=== PATIENT | female | born 1945 | race Caucasian/White ===

== ENCOUNTER 2016-07-25 14:15 | Emergency (ER) | payer MEDICARE ==
[~2016-07-25] VITALS: Wt 70.3 kg
[~2016-07-25 14:15] MED LIST: ADVAIR DISKUS 21 DSK IH; CIPRO750 MG; DETROL LA2 MG PO; EVISTA60 MG PO; FLONASE0.05 MG/AC NS; LASIX20 MG PO; POTASSIUM20 MEQ PO; PREDNISONE20 MG PO; PRILOSEC20 M1 PO; PROTONIX40 MG PO; SINGULAIR10 MG PO; ZOLOFT25 MG PO
[2016-07-25] MEDS ORDERED: ARICEPT5 M1 PO (14:25)
[2016-07-25] MEDS ORDERED: TESSALON PERLE100 M1 PO (14:25)
== END 2016-07-25 15:33 | disposition home or self-care (01) ==
LOC: ED 14:15
DX: S50.11XA Contusion of right forearm, initial encounter (principal); Z79.899 Other long term (current) drug therapy; W55.12XA Struck by horse, initial encounter; Y93.9 Activity, unspecified; Y92.9 Unspecified place or not applicable; Y99.9 Unspecified external cause status

== ENCOUNTER 2017-05-28 22:44 | Inpatient (IN) | payer MEDICARE ==
[~2017-05-28] VITALS: Ht 160.9 cm; Wt 74.5 kg
--- NOTE | ~2017-05-28 | CON ---
[place], [place] REPORT OF CONSULTATION NAME: SALVATORE HINSON UNIT #: [id number] ROOM: 409 DOCTOR: TRISHA GUERRERO MD BIRTHDATE: [birth year] DOS: 05/29/2017 PSYCHIATRIC CONSULTATION CHIEF COMPLAINT: "I don't feel right, I feel kind of spacey." HISTORY OF PRESENT ILLNESS: This is a 72-year-old woman who presented with increased depression, anxiety and just not feeling herself. The patient reports that she was at [facility] and was worked up for both Alzheimer's dementia and for major depression and sent home to have counseling and psychiatric intervention. She is a rather poor historian because she states that since she has been here she was recently placed on Remeron and Seroquel; however, the notes seem to indicate that these have been stopped and this was what was started at [facility]. She reports that what she has noted in the morning is a hangover effect and she is very somnolent for most of the day until somewhere past lunch. She does not like the feeling. She reports that she has some residual depression and anxiety, but not as bad as it had been previously. She denies a previous history of depression. PAST MEDICAL HISTORY: Remarkable for the depression and anxiety, hypertension, GERD, overactive bladder. MENTAL STATUS: The patient is alert and oriented with some time gaps. Mood does seem to be depressed with anxious overtones. There is no hypomania or marcello. There are no overt auditory or visual hallucinations. No delusions, no paranoia. Short term memory has mild gaps. DIAGNOSIS: Major depression, recurrent. PLAN: I will go ahead and order her Trintellix 10 mg a day. Trintellix is a unique SSRI that not only combats depression, but it improves anxiety. It also has been known to improve concentration and memory factors. It should not cause her to be sedate in anyway. I have discontinued her Restoril, so this is not given to her and does not cause her to be overly somnolent. Should you require further intervention, please feel free to contact me at any time. TRISHA GUERRERO MD CM:CONSTR:REPORT OF CONSULTATION 1115 05/29/17 1128 interface
[~2017-05-28 22:44] MED LIST changes: +ARICEPT5 M1 PO; +FLONASE ALLERG9.9 ML NAS; -FLONASE0.05 MG/AC NS; +TESSALON PERLE100 M1 PO
[2017-05-28 22:48] VITALS: BP 133/65
[2017-05-28] MEDS ORDERED: QUETIAPINE FUMA25 MG PO (23:00)
[2017-05-28] MEDS ORDERED: PRAZOSIN HCL1 MG PO (23:00)
[2017-05-28] MEDS ORDERED: MIRTAZAPINE7.5 MG PO (23:00)
[2017-05-28] MEDS ORDERED: PRAVASTATIN SOD10 MG PO (23:00)
[2017-05-28 23:32] LABS: HEMATOCRIT 36.9 % (37.0-47.0); HEMOGLOBIN 12.8 g/dl (12.0-16.0); MEAN CELL VOLUME 87.6 fl (81.0-99.0); MEAN CORPUSCULAR HGB 30.4 pg (27.0-31.0); MEAN CORPUSCULAR HGB CONC 34.7 g/dl (33.0-37.0); MEAN PLATELET VOLUME 9.2 fl (9.6-12.3); PLATELET COUNT AUTOMATED 362 10*3/uL (130-400); RED BLOOD COUNT 4.21 10*6/uL (4.10-5.10); RED CELL DISTRI WIDTH 12.2 % (0-14.5); WHITE BLOOD COUNT 9.8 10*3/uL (4.8-10.8)
[2017-05-28 23:42] LABS: ACT PARTIAL THROMBO TIME 26.6 SECONDS (20.8-31.5)
[2017-05-28 23:48] LABS: ALKALINE PHOSPHATASE 116 U/L (45-117); BUN 26 mg/dl (7-24); CHLORIDE 94 mmol/L (98-107); CREATININE 1.18 mg/dL (0.55-1.02); LIPASE 130 U/L (73-393); POTASSIUM 3.2 mmol/L (3.5-5.1); SGOT/AST 22 IU/L (3-35); SGPT/ALT 30 U/L (12-78); SODIUM 132 mmol/L (136-145); TOTAL PROTEIN 7.5 gm/dL (6.4-8.2); TROPONIN I < 0.015 ng/ml (<0.045)
[2017-05-29] VITALS (8 sets, daily range): BP systolic 103–126; BP diastolic 46–61
[2017-05-29 00:01] LABS: ATYPICAL LYMPHS 3 % (0-0); BASOPHILS 1 % (0-1); PLATELET SUFFICIENCY NORMAL (NORMAL); TOTAL CELLS COUNTED 100 #CELLS
[2017-05-29 01:23] LABS: ABG BASE EXCESS 1.5 mmol/L (-2.0-2.0); ABG O2 SATURATION 93.3 % (95-97); ARTERIAL BLOOD GAS PH 7.552 (7.35-7.45); ARTERIAL BLOOD GAS PO2 61.4 mmHg (80-90)
[2017-05-29] MEDS ORDERED: TESSALON PERLE100 MG PO (02:45)
[2017-05-29] MEDS ORDERED: TRIAMTERENE & H1 CAP PO (02:46)
[2017-05-29] MEDS ORDERED: DULERA 200 MCG8.8 GM INH (02:47)
[2017-05-29] MEDS ORDERED: PROAIR HFA8.5 GM INH (02:47)
[2017-05-30] VITALS: BP 134/54
[2017-05-30 04:10] LABS: BILIRUBIN NEGATIVE (NEGATIVE); BLOOD NEGATIVE (NEGATIVE); CLARITY CLEAR (CLEAR); COLOR YELLOW (YELLOW); GLUCOSE TRACE (NEGATIVE); KETONE NEGATIVE (NEGATIVE); LEUKO ESTERASE TRACE (NEGATIVE); NITRITE NEGATIVE (NEGATIVE); UROBILINOGEN 0.2 E.U./dl (0.2-1.0)
[2017-05-30 04:19] LABS: BACTERIA TRACE
[2017-05-30 06:31] LABS: BASO % 0.1 % (0.0-1.0); HEMOGLOBIN 11.7 g/dl (12.0-16.0); LYMPH # 0.7 10*3/uL (1.3-4.4); LYMPH % 9.5 % (27.0-41.0); MEAN CELL VOLUME 91.9 fl (81.0-99.0); MEAN CORPUSCULAR HGB 30.7 pg (27.0-31.0); MEAN CORPUSCULAR HGB CONC 33.4 g/dl (33.0-37.0); MEAN PLATELET VOLUME 9.5 fl (9.6-12.3); MONO # 0.3 10*3/uL (0.1-1.0); MONO % 4.6 % (3.0-9.0); NEUT # 6.2 10*3/uL (2.3-7.9); PLATELET COUNT AUTOMATED 349 10*3/uL (130-400); RED BLOOD COUNT 3.81 10*6/uL (4.10-5.10); RED CELL DISTRI WIDTH 12.5 % (0-14.5); WHITE BLOOD COUNT 7.3 10*3/uL (4.8-10.8)
[2017-05-30 07:02] LABS: ALBUMIN 2.4 gm/dl (3.1-4.5); CHLORIDE 104 mmol/L (98-107); CHOLESTEROL 82 mg/dL (<200); CREATININE 0.84 mg/dL (0.55-1.02); PHOSPHOROUS 2.9 mg/dL (2.5-4.9); POTASSIUM 3.8 mmol/L (3.5-5.1); SGOT/AST 15 IU/L (3-35); SGPT/ALT 26 U/L (12-78); SODIUM 139 mmol/L (136-145); TOTAL PROTEIN 6.7 gm/dL (6.4-8.2); TRIGLYCERIDES 64 mg/dl (<150); VLDL CHOLESTEROL 13 mg/dL (6-40)
[2017-05-30 07:08] LABS: ALKALINE PHOSPHATASE 108 U/L (45-117); HDL CHOLESTEROL 39 mg/dl (40-60); LDL CHOLESTEROL 30 mg/dL (9-159)
[2017-05-30 07:09] LABS: BUN 12 mg/dl (7-24); THYROID STIM HORMONE (HS) 0.596 uIU/ml (0.358-4.75)
[2017-05-30 08:00] VITALS: BP 139/57
[2017-05-30 09:21] LABS: VITAMIN D, 25-HYDROXY 53.1 ng/mL (30-100)
[2017-05-30 12:00] VITALS: BP 111/58
[2017-05-30 16:00] VITALS: BP 117/54; BP 143/83
[2017-05-30 20:00] VITALS: BP 120/56
[2017-05-31 00:27] VITALS: BP 126/58
[2017-05-31 06:58] LABS: BASO % 0.1 % (0.0-1.0); HEMATOCRIT 34.2 % (37.0-47.0); HEMOGLOBIN 11.3 g/dl (12.0-16.0); LYMPH # 1.3 10*3/uL (1.3-4.4); LYMPH % 10.1 % (27.0-41.0); MEAN CELL VOLUME 93.2 fl (81.0-99.0); MEAN CORPUSCULAR HGB 30.8 pg (27.0-31.0); MEAN PLATELET VOLUME 9.5 fl (9.6-12.3); MONO # 0.8 10*3/uL (0.1-1.0); MONO % 6.6 % (3.0-9.0); NEUT # 10.2 10*3/uL (2.3-7.9); NEUT % 82.2 % (47.0-73.0); PLATELET COUNT AUTOMATED 383 10*3/uL (130-400); RED BLOOD COUNT 3.67 10*6/uL (4.10-5.10); RED CELL DISTRI WIDTH 12.6 % (0-14.5); WHITE BLOOD COUNT 12.4 10*3/uL (4.8-10.8)
[2017-05-31 07:23] LABS: BUN 21 mg/dl (7-24); CHLORIDE 106 mmol/L (98-107); CREATININE 0.97 mg/dL (0.55-1.02); POTASSIUM 4.1 mmol/L (3.5-5.1); SODIUM 141 mmol/L (136-145)
[2017-05-31 08:00] VITALS: BP 144/64
[2017-05-31 12:00] VITALS: BP 116/55
[2017-05-31 16:00] VITALS: BP 130/57
[2017-05-31 20:00] VITALS: BP 117/47
[2017-06-01 00:22] VITALS: BP 135/68
[2017-06-01 07:36] LABS: BASO % 0.1 % (0.0-1.0); EOS % 0.3 % (1.0-4.0); HEMATOCRIT 35.7 % (37.0-47.0); HEMOGLOBIN 11.8 g/dl (12.0-16.0); LYMPH # 1.3 10*3/uL (1.3-4.4); LYMPH % 12.9 % (27.0-41.0); MEAN CORPUSCULAR HGB 30.7 pg (27.0-31.0); MEAN CORPUSCULAR HGB CONC 33.1 g/dl (33.0-37.0); MEAN PLATELET VOLUME 9.3 fl (9.6-12.3); MONO # 0.8 10*3/uL (0.1-1.0); MONO % 7.6 % (3.0-9.0); NEUT # 8.1 10*3/uL (2.3-7.9); NEUT % 77.8 % (47.0-73.0); PLATELET COUNT AUTOMATED 366 10*3/uL (130-400); RED BLOOD COUNT 3.84 10*6/uL (4.10-5.10); RED CELL DISTRI WIDTH 12.9 % (0-14.5); WHITE BLOOD COUNT 10.4 10*3/uL (4.8-10.8)
[2017-06-01 08:00] VITALS: BP 129/56
[2017-06-01 12:00] VITALS: BP 102/53
[2017-06-01] MEDS ORDERED: PREDNISONE10 MG PO (13:08)
[2017-06-01] MEDS ORDERED: LEVAQUIN750 M1 PO (13:08)
[2017-06-01] MEDS ORDERED: BRIN10TA PO (13:08)
[2017-06-01 16:00] VITALS: BP 130/66
== END 2017-06-01 18:00 | disposition home or self-care (01) | DRG 682 ==
LOC: ED 22:44 → EDHOLD 05-29 01:12 → 4E 05-29 01:12
PROVIDERS: Emergency Medicine; Emergency Medicine Emergency Medical Services; Internal Medicine; Student in an Organized Health Care Education/Training Program
DX: N17.0 Acute kidney failure with tubular necrosis (principal); J18.9 Pneumonia, unspecified organism; J96.01 Acute respiratory failure with hypoxia; G93.41 Metabolic encephalopathy; E44.0 Moderate protein-calorie malnutrition; E87.8 Other disorders of electrolyte and fluid balance, not elsewhere classified; D64.9 Anemia, unspecified; J45.901 Unspecified asthma with (acute) exacerbation; E87.1 Hypo-osmolality and hyponatremia; F33.9 Major depressive disorder, recurrent, unspecified; K21.9 Gastro-esophageal reflux disease without esophagitis; I10 Essential (primary) hypertension; N32.81 Overactive bladder; R73.9 Hyperglycemia, unspecified; E87.6 Hypokalemia; F41.9 Anxiety disorder, unspecified; E86.0 Dehydration; Z87.891 Personal history of nicotine dependence; Z79.899 Other long term (current) drug therapy; Z83.3 Family history of diabetes mellitus; Z82.49 Family history of ischemic heart disease and other diseases of the circulatory system; Z68.26 Body mass index [BMI] 26.0-26.9, adult

== ENCOUNTER 2017-06-02 17:56 | Inpatient (IN) | payer MEDICARE ==
[~2017-06-02] VITALS: Ht 157.4 cm; Wt 74.4 kg
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
--- NOTE | ~2017-06-02 | PR ---
[place], [place] PROGRESS NOTE NAME: SALVATORE HINSON UNIT #: [id number] ROOM: 311 DOCTOR: TRISHA GUERRERO MD BIRTHDATE: [birth year] DOS: 06/06/2017 CHIEF COMPLAINT: "I just want to go home." SUMMARY OF THE VISIT: The patient was interviewed in the dining area where she was eating her breakfast. She was fixated on going home. Nurses report that she has had some bizarre interactions with her , one minute demanding that he does not come here and visit, the next minute demanding that she does come and visit. She seems to be all over the place in this regard. His phone calls per nursing report are also rather bizarre. At this point, I do feel we need to do a family session with the social group worker to get some better sense of what their relationship is like and how and if they can support each other adequately. MENTAL STATUS: She is alert and oriented with time gaps. Mood does seem to be more euthymic. Affect is more appropriate. There still seems to be mood lability and she just does tend to have her moods jump all over the place. She is tolerating the current medication regimen well without apparent side effects. Short term memory has gaps. PLAN: I will go ahead and maximize the dose of Exelon patch, bringing it to 13.3 mg daily. Regulator Tester will reach out and attempt to schedule a family session so we can get a better sense of what the family dynamics are truly like. We will discharge the patient then to the least restrictive environment when psychiatrically stable. TRISHA GUERRERO MD CM:PNTRANS [id number] TRISHA GUERRERO MD 06/06/17 0940 interface
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
--- NOTE | ~2017-06-02 | PR ---
[place], [place] PROGRESS NOTE NAME: SALVATORE HINSON UNIT #: [id number] ROOM: 311 DOCTOR: TRISHA GUERRERO MD BIRTHDATE: [birth year] DOS: 06/08/2017 CHIEF COMPLAINT: Is it okay for me to tell my that I don't want to do something?" SUMMARY OF THE VISIT: The patient was interviewed as she was sitting with many female peers at the table. She engaged readily in conversation with me, stating that she did sleep better last night, but still had interrupted sleep nonetheless. She does report that she is feeling better; however, nurses report that she seemed to become increasingly confused in the late evening hours to the point of even disrobing and exposing herself. She reports no side effects from the medications themselves. MENTAL STATUS: She is alert and oriented with time gaps. Mood does seem to be trending towards euthymia. Affect is more appropriate. There is no marcello or hypomania. There are no gross psychotic symptoms. Short term memory has gaps. PLAN: I will go ahead and start Namenda 10 mg in the a.m. to augment the rivastigmine patch, continue the Risperdal at 2 mg at bedtime, continue to engage in individual and shya milieu activity, returning home then when psychiatrically stable. TRISHA GUERRERO MD CM:PNTRANS [id number] TRISHA GUERRERO MD 06/08/17 1128 interface
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
[~2017-06-02 17:56] MED LIST changes: +BRIN10TA PO; +DULERA 200 MCG8.8 GM INH; +LEVAQUIN750 M1 PO; +MIRTAZAPINE7.5 MG PO; +PRAVASTATIN SOD10 MG PO; +PRAZOSIN HCL1 MG PO; +PREDNISONE10 MG PO; +PROAIR HFA8.5 GM INH; +QUETIAPINE FUMA25 MG PO; +TESSALON PERLE100 MG PO; +TRIAMTERENE & H1 CAP PO
[2017-06-02 17:57] VITALS: BP 110/53
[2017-06-02 18:36] LABS: HEMATOCRIT 38.3 % (37.0-47.0); HEMOGLOBIN 13.1 g/dl (12.0-16.0); MEAN CORPUSCULAR HGB 30.7 pg (27.0-31.0); MEAN CORPUSCULAR HGB CONC 34.2 g/dl (33.0-37.0); MEAN PLATELET VOLUME 9.1 fl (9.6-12.3); PLATELET COUNT AUTOMATED 456 10*3/uL (130-400); RED BLOOD COUNT 4.27 10*6/uL (4.10-5.10); RED CELL DISTRI WIDTH 12.6 % (0-14.5); WHITE BLOOD COUNT 9.5 10*3/uL (4.8-10.8)
[2017-06-02 18:39] LABS: BILIRUBIN NEGATIVE (NEGATIVE); BLOOD NEGATIVE (NEGATIVE); CLARITY CLEAR (CLEAR); COLOR YELLOW (YELLOW); GLUCOSE NEGATIVE (NEGATIVE); KETONE NEGATIVE (NEGATIVE); LEUKO ESTERASE 1+ (NEGATIVE); NITRITE NEGATIVE (NEGATIVE); SPECIFIC GRAVITY <= 1.005 (1.005-1.030); UROBILINOGEN 0.2 E.U./dl (0.2-1.0)
[2017-06-02 18:45] LABS: BACTERIA TRACE
[2017-06-02 18:46] LABS: WBC 16-20 wbc/hpf (0-5)
[2017-06-02 18:53] LABS: BUN 28 mg/dl (7-24); CHLORIDE 105 mmol/L (98-107); POTASSIUM 3.1 mmol/L (3.5-5.1); SGOT/AST 23 IU/L (3-35); SGPT/ALT 49 U/L (12-78); SODIUM 139 mmol/L (136-145); TOTAL PROTEIN 6.9 gm/dL (6.4-8.2)
[2017-06-02 18:54] LABS: ALKALINE PHOSPHATASE 113 U/L (45-117)
[2017-06-02 18:59] LABS: MEAN CELL VOLUME 89.7 fl (81.0-99.0)
[2017-06-02 19:04] LABS: TOTAL CELLS COUNTED 100 #CELLS; TOXIC GRANULATION SLIGHT
[2017-06-02 19:05] LABS: BURR CELLS FEW; PLATELET SUFFICIENCY NORMAL (NORMAL); POLYCHROMASIA SLIGHT
[2017-06-02 22:48] VITALS: BP 118/60
[2017-06-02 23:29] VITALS: BP 118/60
[2017-06-03 07:50] VITALS: BP 122/56
[2017-06-03 11:08] LABS: VITAMIN D, 25-HYDROXY 44.2 ng/mL (30-100)
[2017-06-03 20:00] VITALS: BP 135/70
[2017-06-04 08:00] VITALS: BP 114/67
[2017-06-04 20:07] VITALS: BP 113/50
[2017-06-05 07:46] VITALS: BP 121/64
[2017-06-05 08:00] VITALS: BP 114/65
[2017-06-05 20:19] VITALS: BP 117/56
[2017-06-06 07:34] VITALS: BP 107/59
[2017-06-06 07:45] LABS: BUN 14 mg/dl (7-24); CHLORIDE 107 mmol/L (98-107); POTASSIUM 3.8 mmol/L (3.5-5.1); SODIUM 143 mmol/L (136-145)
[2017-06-06 20:42] VITALS: BP 115/60
[2017-06-07 07:45] VITALS: BP 110/70
[2017-06-07 20:00] VITALS: BP 123/72
[2017-06-08 07:52] VITALS: BP 119/58
[2017-06-08 21:20] VITALS: BP 114/64
[2017-06-08 21:22] VITALS: BP 114/64
[2017-06-09 07:50] VITALS: BP 112/69
[2017-06-09 20:00] VITALS: BP 128/82
[2017-06-10 07:36] VITALS: BP 111/62
[2017-06-10] MEDS ORDERED: EXELON13.3 MG/21 T (11:12)
[2017-06-10] MEDS ORDERED: NAMENDA-5 PO (11:12)
[2017-06-10] MEDS ORDERED: MEMANTINE HCL10 MG PO (11:12)
[2017-06-10] MEDS ORDERED: MIRTAZAPINE15 M2 PO (11:12)
[2017-06-10] MEDS ORDERED: RISPERIDONE3 M2 PO (11:12)
== END 2017-06-10 17:20 | disposition home or self-care (01) | DRG 885 ==
LOC: ED 17:56 → EDHOLD 21:33 → 3N 21:33
PROVIDERS: Emergency Medicine; Internal Medicine; Psychiatry & Neurology Psychiatry
DX: F33.3 Major depressive disorder, recurrent, severe with psychotic symptoms (principal); E44.0 Moderate protein-calorie malnutrition; F05 Delirium due to known physiological condition; D47.3 Essential (hemorrhagic) thrombocythemia; E87.6 Hypokalemia; E66.9 Obesity, unspecified; F41.9 Anxiety disorder, unspecified; E78.5 Hyperlipidemia, unspecified; R73.9 Hyperglycemia, unspecified; J45.909 Unspecified asthma, uncomplicated; N32.81 Overactive bladder; G31.84 Mild cognitive impairment of uncertain or unknown etiology; I10 Essential (primary) hypertension; K21.9 Gastro-esophageal reflux disease without esophagitis; Z68.30 Body mass index [BMI] 30.0-30.9, adult; Z79.899 Other long term (current) drug therapy; Z87.891 Personal history of nicotine dependence; Z83.3 Family history of diabetes mellitus; Z82.49 Family history of ischemic heart disease and other diseases of the circulatory system

== ENCOUNTER → 2017-12-14 | Outpatient (CLI) | payer MEDICARE ==
[~2017-12-14] MED LIST changes: +EXELON13.3 MG/21 T; +MEMANTINE HCL10 MG PO; +MIRTAZAPINE15 M2 PO; +NAMENDA-5 PO; +RISPERIDONE3 M2 PO
== END | disposition home or self-care (01) ==
LOC: MAMMO 08:20
DX: Z12.31 Encounter for screening mammogram for malignant neoplasm of breast (principal); R92.1 Mammographic calcification found on diagnostic imaging of breast

== ENCOUNTER → 2018-11-08 | Outpatient (CLI) | payer MEDICARE | END | disposition home or self-care (01) | LOC: RAD 13:17 → MAMMO 14:00 | DX: Z13.820 Encounter for screening for osteoporosis (principal); J45.20 Mild intermittent asthma, uncomplicated; Z78.0 Asymptomatic menopausal state ==

== ENCOUNTER → 2019-01-11 | Outpatient (CLI) | payer MEDICARE | END | disposition home or self-care (01) | LOC: MAMMO 11:30 | DX: Z12.31 Encounter for screening mammogram for malignant neoplasm of breast (principal) ==

== ENCOUNTER → 2019-09-06 | Outpatient (CLI) | payer MEDICARE ==
[2019-09-06 10:53] LABS: ALBUMIN 3.5 gm/dl (3.1-4.5); ALKALINE PHOSPHATASE 109 U/L (45-117); BUN 12 mg/dl (7-24); CHLORIDE 102 mmol/L (98-107); CHOLESTEROL 172 mg/dL (<200); CREATININE 0.79 mg/dL (0.55-1.02); FREE T4 1.28 ng/dl (0.76-1.46); HDL CHOLESTEROL 68 mg/dl (40-60); LDL CHOLESTEROL 89 mg/dL (9-159); POTASSIUM 4.3 mmol/L (3.5-5.1); SGOT/AST 11 IU/L (3-35); SGPT/ALT 26 U/L (12-78); SODIUM 134 mmol/L (136-145); TOTAL PROTEIN 7.2 gm/dL (6.4-8.2); TRIGLYCERIDES 76 mg/dl (<150); VLDL CHOLESTEROL 15 mg/dL (6-40)
[2019-09-06 11:08] LABS: BASO % 0.7 % (0.0-1.0); EOS # 0.1 10*3/uL (0.0-0.4); EOS % 1.8 % (1.0-4.0); HEMATOCRIT 43.8 % (37.0-47.0); LYMPH # 1.6 10*3/uL (1.3-4.4); LYMPH % 35.9 % (27.0-41.0); MEAN CORPUSCULAR HGB 30.5 pg (27.0-31.0); MEAN CORPUSCULAR HGB CONC 33.1 g/dl (33.0-37.0); MEAN PLATELET VOLUME 9.5 fl (9.6-12.3); MONO # 0.7 10*3/uL (0.1-1.0); MONO % 14.9 % (3.0-9.0); NEUT # 2.1 10*3/uL (2.3-7.9); NEUT % 46.5 % (47.0-73.0); PLATELET COUNT AUTOMATED 314 10*3/uL (130-400); RED BLOOD COUNT 4.76 10*6/uL (4.10-5.10); RED CELL DISTRI WIDTH 12.7 % (0-14.5); WHITE BLOOD COUNT 4.4 10*3/uL (4.8-10.8)
[2019-09-06 12:21] LABS: VITAMIN D, 25-HYDROXY 80.3 ng/mL (30-100)
== END | disposition home or self-care (01) ==
LOC: LAB 09:51 → CT 10:00
PROVIDERS: Internal Medicine
DX: Z00.00 Encounter for general adult medical examination without abnormal findings (principal); Z13.21 Encounter for screening for nutritional disorder; Z13.220 Encounter for screening for lipoid disorders; Z13.1 Encounter for screening for diabetes mellitus; E55.9 Vitamin D deficiency, unspecified; I10 Essential (primary) hypertension; J84.10 Pulmonary fibrosis, unspecified

== ENCOUNTER → 2019-10-11 | Outpatient (CLI) | payer MEDICARE ==
[~2019-10-11] MED LIST changes: +CENTRUM SILVER1 EACH PO; +MELATONIN10 M4 PO; +MYRBETRIQ50 M1 PO; +NAMENDA10 MG PO; +SUPER B-50 COM1 EAC1 PO; +VITAMIN D3125 MCG PO
== END | disposition home or self-care (01) ==
LOC: COVID19 02:49
PROVIDERS: ATTEND Internal Medicine Critical Care Medicine
DX: Z20.828 Contact with and (suspected) exposure to other viral communicable diseases (principal)

== ENCOUNTER → 2020-01-09 | Outpatient (CLI) | payer MEDICARE | END | disposition home or self-care (01) | LOC: CT 11:00 | PROVIDERS: ATTEND Internal Medicine Critical Care Medicine | DX: J43.9 Emphysema, unspecified (principal); I25.10 Atherosclerotic heart disease of native coronary artery without angina pectoris; R91.8 Other nonspecific abnormal finding of lung field ==

== ENCOUNTER → 2020-05-05 | Outpatient (CLI) | payer MEDICARE ==
[2020-05-05 12:22] LABS: BASO % 0.4 % (0.0-1.0); EOS % 0.8 % (1.0-4.0); HEMATOCRIT 45.4 % (37.0-47.0); LYMPH # 1.4 10*3/uL (1.3-4.4); LYMPH % 26.3 % (27.0-41.0); MEAN CELL VOLUME 91.5 fl (81.0-99.0); MEAN CORPUSCULAR HGB 30.4 pg (27.0-31.0); MEAN CORPUSCULAR HGB CONC 33.3 g/dl (33.0-37.0); MEAN PLATELET VOLUME 9.6 fl (9.6-12.3); MONO # 0.5 10*3/uL (0.1-1.0); NEUT # 3.3 10*3/uL (2.3-7.9); NEUT % 62.3 % (47.0-73.0); PLATELET COUNT AUTOMATED 316 10*3/uL (130-400); RED BLOOD COUNT 4.96 10*6/uL (4.10-5.10); RED CELL DISTRI WIDTH 12.6 % (0-14.5); WHITE BLOOD COUNT 5.2 10*3/uL (4.8-10.8)
[2020-05-05 12:42] LABS: CHLORIDE 104 mmol/L (98-107); POTASSIUM 3.7 mmol/L (3.5-5.1); SODIUM 137 mmol/L (136-145)
[2020-05-05 12:53] LABS: ALBUMIN 3.5 gm/dl (3.1-4.5); ALKALINE PHOSPHATASE 115 U/L (45-117); BUN 8 mg/dl (7-24); CHOLESTEROL 170 mg/dL (<200); CREATININE 0.74 mg/dL (0.55-1.02); FREE T4 1.36 ng/dl (0.76-1.46); HDL CHOLESTEROL 67 mg/dl (40-60); LDL CHOLESTEROL 87 mg/dL (9-159); SGOT/AST 10 IU/L (3-35); SGPT/ALT 23 U/L (12-78); TOTAL PROTEIN 7.6 gm/dL (6.4-8.2); TRIGLYCERIDES 81 mg/dl (<150); VLDL CHOLESTEROL 16 mg/dL (6-40)
[2020-05-05 13:24] LABS: VITAMIN D, 25-HYDROXY 58.9 ng/mL (30-100)
== END | disposition home or self-care (01) ==
LOC: RAD 10:00 → LAB 10:12 → MAMMO 10:30
PROVIDERS: ATTEND Internal Medicine
DX: E55.9 Vitamin D deficiency, unspecified (principal); I10 Essential (primary) hypertension; Z78.0 Asymptomatic menopausal state; Z12.31 Encounter for screening mammogram for malignant neoplasm of breast; Z13.1 Encounter for screening for diabetes mellitus; Z13.21 Encounter for screening for nutritional disorder; Z13.220 Encounter for screening for lipoid disorders

== ENCOUNTER → 2020-05-15 | Outpatient (CLI) | payer MEDICARE | END | disposition home or self-care (01) | LOC: CARD 12:45 | PROVIDERS: ATTEND Internal Medicine | DX: I34.8 Other nonrheumatic mitral valve disorders (principal); I70.0 Atherosclerosis of aorta ==

== ENCOUNTER → 2020-09-18 | Outpatient (CLI) | payer MEDICARE | END | disposition home or self-care (01) | LOC: US 13:36 | PROVIDERS: ATTEND Internal Medicine | DX: I65.23 Occlusion and stenosis of bilateral carotid arteries (principal) ==

== ENCOUNTER → 2022-02-10 | Outpatient (CLI) | payer MEDICARE ==
[~2022-02-10] MED LIST changes: +AMOX-CLAV 875-1 EACH PO; +RIVASTIGMINE1 EAC2 T; +SERTRALINE HYDR50 MG PO
[2022-02-10 12:57] LABS: BASO % 0.6 % (0.0-1.0); EOS # 0.1 10*3/uL (0.0-0.4); EOS % 1.7 % (1.0-4.0); HEMATOCRIT 45.4 % (37.0-47.0); LYMPH # 1.1 10*3/uL (1.3-4.4); LYMPH % 24.4 % (27.0-41.0); MEAN CELL VOLUME 92.1 fl (81.0-99.0); MEAN CORPUSCULAR HGB CONC 32.6 g/dl (33.0-37.0); MEAN PLATELET VOLUME 9.9 fl (9.6-12.3); MONO # 0.3 10*3/uL (0.1-1.0); MONO % 7.3 % (3.0-9.0); NEUT # 3.1 10*3/uL (2.3-7.9); NEUT % 65.8 % (47.0-73.0); PLATELET COUNT AUTOMATED 276 10*3/uL (130-400); RED BLOOD COUNT 4.93 10*6/uL (4.10-5.10); RED CELL DISTRI WIDTH 13.6 % (0-14.5); WHITE BLOOD COUNT 4.7 10*3/uL (4.8-10.8)
[2022-02-10 13:20] LABS: ALKALINE PHOSPHATASE 161 U/L (46-116); BUN 25 mg/dl (9-23); CHLORIDE 102 mmol/L (98-107); CHOLESTEROL 216 mg/dL (<200); FREE T4 0.93 ng/dl (0.89-1.76); LDL CHOLESTEROL 111 mg/dL (9-159); SGPT/ALT 28 U/L (10-49); T3 UPTAKE 21.5 % (22.4-36.7); THYROID STIM HORMONE (HS) 1.822 uIU/ml (0.550-4.780); TOTAL PROTEIN 7.3 gm/dL (6.0-8.0); TRIGLYCERIDES 96 mg/dl (<150); VITAMIN D, 25-HYDROXY 32.7 ng/mL (30-100)
== END | disposition home or self-care (01) ==
LOC: LAB 12:23
PROVIDERS: ATTEND Internal Medicine
DX: Z13.89 Encounter for screening for other disorder (principal); Z13.6 Encounter for screening for cardiovascular disorders; Z13.29 Encounter for screening for other suspected endocrine disorder; Z13.820 Encounter for screening for osteoporosis; R73.9 Hyperglycemia, unspecified; Z79.899 Other long term (current) drug therapy; E55.9 Vitamin D deficiency, unspecified

== ENCOUNTER → 2022-10-27 | Outpatient (CLI) | payer MEDICARE ==
[~2022-10-27] MED LIST changes: +ASPIRIN ADULT L81 M2 PO; +ATORVASTATIN CA40 M1 PO; +ELIQUIS5 M1 PO; +HYDR12.5C PO; +LINEZOLID600 MG PO; +LOPRESSOR25 MG PO; +ZOLOFT50 MG PO
[2022-10-27 15:25] LABS: BASO % 0.7 % (0.0-1.0); EOS # 0.4 10*3/uL (0.0-0.4); EOS % 6.5 % (1.0-4.0); HEMATOCRIT 43.6 % (37.0-47.0); LYMPH # 2.3 10*3/uL (1.3-4.4); LYMPH % 38.1 % (27.0-41.0); MEAN CELL VOLUME 88.3 fl (81.0-99.0); MEAN CORPUSCULAR HGB 29.1 pg (27.0-31.0); MEAN PLATELET VOLUME 9.3 fl (9.6-12.3); MONO % 16.1 % (3.0-9.0); NEUT # 2.3 10*3/uL (2.3-7.9); NEUT % 38.1 % (47.0-73.0); PLATELET COUNT AUTOMATED 333 10*3/uL (130-400); RED BLOOD COUNT 4.94 10*6/uL (4.10-5.10); RED CELL DISTRI WIDTH 14.1 % (0-14.5)
[2022-10-27 15:50] LABS: ALKALINE PHOSPHATASE 142 U/L (46-116); BUN 20 mg/dl (9-23); CHLORIDE 104 mmol/L (98-107); CHOLESTEROL 175 mg/dL (<200); FREE T4 1.13 ng/dl (0.89-1.76); LDL CHOLESTEROL 72 mg/dL (9-159); POTASSIUM 4.3 mmol/L (3.4-5.1); SGPT/ALT 11 U/L (10-49); TOTAL PROTEIN 7.2 gm/dL (6.0-8.0); TRIGLYCERIDES 279 mg/dl (<150)
[2022-10-27 16:56] LABS: VITAMIN D, 25-HYDROXY 34.2 ng/mL (30-100)
== END | disposition home or self-care (01) ==
LOC: LAB 15:02
PROVIDERS: ATTEND Internal Medicine
DX: I10 Essential (primary) hypertension (principal); F33.1 Major depressive disorder, recurrent, moderate; G30.1 Alzheimer's disease with late onset; F41.1 Generalized anxiety disorder